=== PATIENT | male | born 1980 | race Caucasian/White ===

== ENCOUNTER 2017-02-24 18:52 | Emergency (ER) | payer SELFPAY ==
[2017-02-24 19:03] VITALS: BP 115/65; PULSE 78; TEMP 98; BMI 29.0
== END 2017-02-24 20:35 | disposition left against medical advice (07) ==
LOC: JER 18:52
DX: Z53.21 Procedure and treatment not carried out due to patient leaving prior to being seen by health care provider (principal)
CPT/HCPCS: 99281-25

== ENCOUNTER 2017-02-26 20:01 | Emergency (ER) | payer SELFPAY ==
[2017-02-26 20:05] VITALS: BP 122/65; PULSE 61; TEMP 97.9; BMI 29.0
--- NOTE | 2017-02-26 21:00 | PDOC ---
History of Present Illness - General History Source: Patient Exam Limitations: No Limitations - History of Present Illness Initial Comments: 02/26/17 21:09 The patient is a 36 year old male with no significant past medical history who presents to the ED s/p head injury for 3 days. The patient states he stood up from bending down and hit the top of his head against a steel pipe on the ceiling at work on Thursday. He states he went blind for 2 minutes secondary to hitting his head but denies loss of consciousness. He reports nausea, vomiting three times a day, and dizziness worsened at night since Thursday. Denies visual changes. Denies focal numbness, tingling or weakness. Denies chest pain or shortness of breath. <Mavis La - Last Filed: 02/26/17 22:11> - General History Source: Patient <[email or web address] kwong - Last Filed: 02/26/17 22:15> - General Chief Complaint: Lightheaded Stated Complaint: HEAD INJURY Time Seen by Provider: 02/26/17 21:00 Past History <Mavis La - Last Filed: 02/26/17 22:11> - Past Medical History Other medical history: denies - Surgical History Abdominal Surgery: Yes (HERNIA) - Psycho/Social/Smoking Cessation Hx Suicidal Ideation: No Smoking Status: Yes Smoking History: Current every day smoker Number of Cigarettes Smoked Daily: 10 Information on smoking cessation initiated: No <Gilberto Billingsley - Last Filed: 02/26/17 22:15> - Past Medical History Allergies/Adverse Reactions: Allergies Allergy/AdvReac Type Severity Reaction Status Date / Time No Known Allergies Allergy Verified 02/26/17 20:05 Home Medications: Ambulatory Orders Cephalexin Monohydrate [Keflex] 500 mg PO Q8H #21 capsule 02/12/13 Hydrocodone Bit/Acetaminophen [Vicodin 5-500] 1 - 2 tab PO PRN PRN #15 tab 02/12 No Home Medications 0 dose .ROUTE UTDICT 02/12/13 Review of Systems - Review of Systems Able to Perform ROS?: Yes Comments:: 02/26/17 21:09 CONSTITUTIONAL: Absent: fever, chills, diaphoresis, generalized weakness, malaise, loss of appetite HEENT: + head injury Absent: rhinorrhea, nasal congestion, throat pain, throat swelling, difficulty swallowing, mouth swelling, ear pain, eye pain, visual Changes CARDIOVASCULAR: Absent: chest pain, syncope, palpitations, irregular heart rate, lightheadedness , peripheral edema RESPIRATORY: Absent: cough, shortness of breath, dyspnea with exertion, orthopnea, wheezing, stridor, hemoptysis GASTROINTESTINAL: + nausea, vomiting Absent: abdominal pain, abdominal distension, diarrhea, constipation, melena, hematochezia GENITOURINARY: Absent: dysuria, frequency, urgency, hesitancy, hematuria, flank pain, genital pain MUSCULOSKELETAL: Absent: myalgia, arthralgia, joint swelling SKIN: Absent: rash, itching, pallor HEMATOLOGIC/IMMUNOLOGIC: Absent: easy bleeding, easy bruising, lymphadenopathy, frequent infections ENDOCRINE: Absent: unexplained weight gain, unexplained weight loss, heat intolerance, cold intolerance NEUROLOGIC: + dizziness Absent: headache, focal weakness or paresthesias, unsteady gait, seizure, mental status changes, bladder or bowel incontinence PSYCHIATRIC: Absent: anxiety, depression, suicidal or homicidal ideation, hallucinations. All Other Systems: Reviewed and Negative <Mavis La - Last Filed: 02/26/17 22:11> *Physical Exam - Vital Signs Last Vital Signs Temp Pulse Resp BP Pulse Ox 97.9 F 61 18 122/65 99 02/26/17 20:03 02/26/17 20:03 02/26/17 20:03 02/26/17 20:03 02/26/17 20:03 - Physical Exam Comments: 02/26/17 21:09 GENERAL: Well developed, well nourished. Awake and alert. No acute distress. HEENT: + Tenderness to palpation to back and top of head, no bruising or swelling, no cedeno sign or racoon eyes. PERRLA, EOMI. No conjunctival pallor. Sclera are non -icteric. Moist mucous membranes. Oropharynx is clear. NECK: Supple. Full ROM. No JVD. Carotid pulses 2+ and symmetric, without bruits. No thyromegaly. NCo lymphadenopathy. CARDIOVASCULAR: Regular rate and rhythm. No murmurs, rubs, or gallops. Distal pulses are 2+ and symmetric. PULMONARY: No evidence of respiratory distress. Lungs clear to auscultation bilaterally. No wheezing, rales or rhonchi. ABDOMINAL: Soft. Non-tender. Non-distended. No rebound or guarding. No organomegaly. Normoactive bowel sounds. MUSCULOSKELETAL Normal range of motion at all joints. No bony deformities or tenderness. No CVA tenderness. EXTREMITIES: No cyanosis. No clubbing. No edema. No calf tenderness. SKIN: Warm and dry. Normal capillary refill. No rashes. No jaundice. NEUROLOGICAL: Alert, awake, appropriate. Cranial nerves 2-12 intact. No deficits to light touch and temperature in face, upper extremities and lower extremities. No motor deficits in the in face, upper extremities and lower extremities. Normoreflexic in the upper and lower extremities. Normal speech. Toes are down- going bilaterally. Gait is normal without ataxia. PSYCHIATRIC: Cooperative. Good eye contact. Appropriate mood and affect. <Mavis La - Last Filed: 02/26/17 22:11> - Vital Signs Last Vital Signs Temp Pulse Resp BP Pulse Ox 97.9 F 61 18 122/65 99 02/26/17 20:03 02/26/17 20:03 02/26/17 20:03 02/26/17 20:03 02/26/17 20:03 <Gilberto Billingsley - Last Filed: 02/26/17 22:15> ED Treatment Course - RADIOLOGY Radiograph Interpretation: 02/26/17 22:11 CT/HEAD CT WITHOUT CONTRAST Impression: Normal CT of the head. No evidence of acute intracranial pathology. Reported by: Chirag Dc CT/CERVICAL SPINE CT W/O CONTRAST Impression: Normal CT scan of the cervical spine with no fracture or acute pathology. Reported by: Chirag Dc <Mavis La - Last Filed: 02/26/17 22:11> Medical Decision Making - Medical Decision Making 02/26/17 22:14 Dr. Billingsley: The scribe's documentation has been prepared under my direction and personally reviewed by me in its entirery. I confirm that the note above accurately reflects all work, treatment, procedures, and medical decision making performed by me. <Gilberto Billingsley - Last Filed: 02/26/17 22:15> *DC/Admit/Observation/Transfer - Attestations Scribe Attestion: 02/26/17 21:09 Documentation prepared by Mavis La, acting as medical transcriptionist for Gilberto Billingsley MD <Mavis La - Last Filed: 02/26/17 22:11> - Discharge Dispostion Admit: No <Gilberto Billingsley - Last Filed: 02/26/17 22:15> Diagnosis at time of Disposition: Closed head injury Qualifiers: Encounter type: initial encounter Qualified Code(s): S09.90XA - Unspecified injury of head, initial encounter - Discharge Dispostion Disposition: HOME Condition at time of disposition: Stable - Patient Instructions Printed Discharge Instructions: DI for Closed Head Injury
== END 2017-02-26 22:20 | disposition home or self-care (01) ==
LOC: JER 20:01
DX: S09.8XXA Other specified injuries of head, initial encounter (principal); W22.8XXA Striking against or struck by other objects, initial encounter; Y93.H3 Activity, building and construction; Y92.69 Other specified industrial and construction area as the place of occurrence of the external cause; Y99.0 Civilian activity done for income or pay; F17.210 Nicotine dependence, cigarettes, uncomplicated
CPT/HCPCS: 70450-TC; 72125-TC; 99281-25